=== PATIENT | female | born 1990 | race African-American/Black ===

== ENCOUNTER 2018-11-19 22:50 | Emergency (ER) | payer SELFPAY ==
[~2018-11-19] VITALS: Ht 170.2 cm; Wt 58.5 kg
[2018-11-19 22:53] VITALS: BP 144/84
--- NOTE | 2018-11-19 22:59 | NUR ---
PT TO ER BED 2
[2018-11-19] MEDS ORDERED: NACL 0.9% 500 ML IV ONE (23:00)
[2018-11-19] MEDS ORDERED: ONDANSETRON 4 MG/2 ML VIAL IVP ONE (23:00)
--- NOTE | 2018-11-19 23:00 | NUR ---
PATIENT BIB SELF WITH C/O NVD X1 WEEK. STATES SHE HAS BEEN THROWING UP CONTINUOUSLY TODAY EVERY TIME SHE HAS EVEN A SIP OF WATER. NO VOMITING AT THE MOMENT. PT STATES SHE HAS FELT "DIZZY AND WEAK AND ALMOST FAINTED" AND THAT SHE HAS LOST MORE THAN 10 LBS IN ONE WEEK. PATIENT STATES GENERALIZED PAIN OF 9/10 AT THIS TIME; VSS; PATIENT POSITIONED FOR COMFORT; HOB ELEVATED; BEDRAILS UP X2; BED DOWN. ER MD MADE AWARE OF PT STATUS.
[2018-11-19 23:24] LABS: BASOPHILS % (AUTO) 0.6 % (0.0-2.0); EOSINOPHILS # (AUTO) 0.2 K/uL (0-0.4); EOSINOPHILS % (AUTO) 2.7 % (0.0-4.0); HEMATOCRIT 36.3 % (36-48); HEMOGLOBIN 12.4 g/dL (12.0-16.0); LYMPHOCYTES # (AUTO) 1.5 K/uL (2.5-16.5); LYMPHOCYTES % (AUTO) 23.3 % (20.5-51.1); MEAN CORPUSCULAR HEMOGLOBIN 30 pg (27-31); MEAN CORPUSCULAR HGB CONC 34 g/dL (33-37); MEAN CORPUSCULAR VOLUME 88.8 fL (80-94); MONOCYTES # (AUTO) 0.5 K/uL (0.8-1.0); NEUTROPHILS # (AUTO) 4.2 K/uL (1.8-7.7); NEUTROPHILS % (AUTO) 65.4 % (42.2-75.2); PLATELET COUNT (AUTO) 305 K/uL (140-450); RED BLOOD CELL COUNT(AUTO) 4.08 MIL/uL (4.20-5.40); RED CELL DISTRIBUTION WIDTH 12.3 % (11.6-13.7); WHITE BLOOD COUNT (AUTO) 6.4 K/uL (4.8-10.8)
[2018-11-19 23:35] LABS: ANION GAP 14.5 (8-16); CARBON DIOXIDE 26.1 mmol/L (21-32); CREATININE 0.7 mg/dL (0.6-1.3); POTASSIUM 3.6 mmol/L (3.5-5.1)
[2018-11-19 23:40] LABS: ALBUMIN 4.1 g/dL (3.4-5.0); TOTAL BILIRUBIN 0.5 mg/dL (0.0-1.0)
[2018-11-19] MEDS ORDERED: KETOROLAC 30 MG/ML VIAL IVP ONE (23:50)
--- NOTE | 2018-11-20 00:05 | NUR ---
HCG POSITIVE, MADE ER AWARE.
--- NOTE | 2018-11-20 00:53 | NUR ---
US TECH AT BEDSIDE.
[2018-11-20 01:10] VITALS: BP 127/88
== END 2018-11-20 01:11 | disposition home or self-care (01) ==
LOC: MED 22:50
DX: O21.0 Mild hyperemesis gravidarum (principal); J45.909 Unspecified asthma, uncomplicated; Z3A.09 9 weeks gestation of pregnancy
CPT/HCPCS: 36415; 76801; 80053; 81025; 83690; 84702; 85025; 86900; 86901; 96374; 96375; 99284; J1885; J2405; J7030; Q0092

== ENCOUNTER 2019-06-11 08:48 | Emergency (ER) | payer OTHER ==
[~2019-06-11] VITALS: Ht 170.2 cm; Wt 62.1 kg
[2019-06-11 08:54] VITALS: BP 142/96
[2019-06-11] MEDS ORDERED: LIDOCAINE/PRILOCAINE 2.5% 5 GM TUBE TP ONE (09:20)
[2019-06-11] MEDS ORDERED: KETOROLAC 30 MG/ML VIAL IM ONE (09:20)
[2019-06-11 10:03] VITALS: BP 142/96
== END 2019-06-11 10:03 | disposition home or self-care (01) ==
LOC: MED 08:48
DX: H60.12 Cellulitis of left external ear (principal); J45.909 Unspecified asthma, uncomplicated; Z91.013 Allergy to seafood
CPT/HCPCS: 81025; 96372; 99283; J1885

== ENCOUNTER 2020-01-11 00:10 | Emergency (ER) | payer OTHER ==
[~2020-01-11] VITALS: Ht 170.2 cm; Wt 59.0 kg
[2020-01-11 00:10] VITALS: BP 134/91
--- NOTE | 2020-01-11 00:10 | NUR ---
29/F presents ambulatory to ED, c/o L greater that R ear pain, x2-3 days. Denies fever/chills, cough/congestion, CP/SOB. Pt awake and alert, skin normal color warm and dry, rr even and unlabored. Hx asthma Rx albuterol inh OTC tylenol 2 days ago without relief
[2020-01-11] MEDS ORDERED: CEPHALEXIN 500 MG CAP PO ONE (00:35)
[2020-01-11] MEDS ORDERED: IBUPROFEN 600 MG TAB PO ONE (00:35)
[2020-01-11] MEDS ORDERED: HYDROcodone/APAP 5/325 MG 1 TAB TAB PO ONE (00:35)
[2020-01-11] MEDS ORDERED: SULFAMETH/TRIMETH DS 800/160MG 1 TAB PO ONE (00:40)
--- NOTE | 2020-01-11 01:05 | NUR ---
Patient discharged with v/s stable. Written and verbal after care instructions given and explained. Patient alert, oriented and verbalized understanding of instructions. Ambulatory with steady gait. All questions addressed prior to discharge. ID band removed. Patient advised to follow up with PMD. Rx of motrin, bactrim, keflex, norco and ciprodex given. Patient educated on indication of medication including possible reaction and side effects. Opportunity to ask questions provided and answered.
[2020-01-11 01:07] VITALS: BP 134/91
== END 2020-01-11 01:08 | disposition home or self-care (01) ==
LOC: MED 00:10
DX: H60.93 Unspecified otitis externa, bilateral (principal); J45.909 Unspecified asthma, uncomplicated; L03.211 Cellulitis of face
CPT/HCPCS: 99284

== ENCOUNTER 2021-03-20 23:56 | Emergency (ER) | payer OTHER ==
[~2021-03-20] VITALS: Ht 172.7 cm; Wt 69.4 kg
[2021-03-21 00:01] VITALS: BP 125/83
--- NOTE | 2021-03-21 00:05 | NUR ---
PT TAKEN TO BED 4
--- NOTE | 2021-03-21 00:40 | NUR ---
PATIENT PRESENTS TO ED WITH C/O "NOT FEELING WELL" AND FATIGUE . DENIES N/V/D; SKIN IS PINK/WARM/DRY; AAOX4 WITH EVEN AND STEADY GAIT; LUNGS CLEAR BL; HR EVEN AND REGULAR; PT DENIES ANY FEVER, CP, SOB, OR COUGH AT THIS TIME VSS; PATIENT POSITIONED FOR COMFORT; HOB ELEVATED; BEDRAILS UP X2; BED DOWN. ER MD MADE AWARE OF PT STATUS.
--- NOTE | 2021-03-21 00:51 | NUR ---
AMBULATED TO BR FOR UA
--- NOTE | 2021-03-21 01:13 | NUR ---
Dr. Brewer examining patient.
[2021-03-21] MEDS ORDERED: KETOROLAC 60 MG/2 ML VIAL IM ONE (01:20)
[2021-03-21] MEDS ORDERED: IBUP-2213 PO (01:26)
[2021-03-21] MEDS ORDERED: ONDA8TAB87 PO (01:26)
[2021-03-21] MEDS ORDERED: CIPR500T4 PO (01:26)
[2021-03-21] MEDS ORDERED: ACET-8386 PO (01:26)
[2021-03-21 01:34] VITALS: BP 125/83
--- NOTE | 2021-03-21 01:34 | NUR ---
Patient discharged with v/s stable. Written and verbal after care instructions given and explained. Patient alert, oriented and verbalized understanding of instructions. Ambulatory with steady gait. All questions addressed prior to discharge. ID band removed. Patient advised to follow up with PMD. Rx of HYDROCODONE, CIPRO, IBUPROFEN, ZOFRAN given. Patient educated on indication of medication including possible reaction and side effects. Opportunity to ask questions provided and answered.
== END 2021-03-21 01:34 | disposition home or self-care (01) ==
LOC: MED 23:56
DX: R10.9 Unspecified abdominal pain (principal); R11.2 Nausea with vomiting, unspecified; R19.7 Diarrhea, unspecified; R50.9 Fever, unspecified; J45.909 Unspecified asthma, uncomplicated
CPT/HCPCS: 81002; 81025; 96372; 99283; J1885

== ENCOUNTER 2021-08-13 11:33 | Emergency (ER) | payer OTHER ==
[~2021-08-13] VITALS: Ht 170.2 cm; Wt 65.8 kg
[~2021-08-13 11:33] MED LIST: ACET-8386 PO; CIPR500T4 PO; IBUP-2213 PO; ONDA8TAB87 PO
[2021-08-13 11:38] VITALS: BP 168/113
[2021-08-13] MEDS: KETOROLAC 30 MG/ML VIAL IM ONE (12:01)
[2021-08-13] MEDS: HYDROcodone/APAP 5/325 MG 1 TAB TAB PO ONE (12:01)
[2021-08-13] MEDS ORDERED: NAPR-54 PO (13:03)
[2021-08-13] MEDS ORDERED: ACET-8386 PO (13:03)
[2021-08-13] MEDS: fentaNYL citrate 0.05 MG/ML VIAL NS ONE (13:14)
[2021-08-13 14:00] VITALS: BP 168/113
== END 2021-08-13 14:01 | disposition home or self-care (01) ==
LOC: MED 11:33
DX: S62.291A Other fracture of first metacarpal bone, right hand, initial encounter for closed fracture (principal); W22.03XA Walked into furniture, initial encounter; Y93.89 Activity, other specified; Y92.89 Other specified places as the place of occurrence of the external cause; Y99.8 Other external cause status; S40.011A Contusion of right shoulder, initial encounter
CPT/HCPCS: 29125; 73020; 73080; 73130; 99284; J3010